=== PATIENT | female | born 1955 | race Caucasian/White ===

== ENCOUNTER → 2019-06-11 | Outpatient (CLI) | payer MEDICARE, OTHER ==
[~2019-06-11] MED LIST: ALLERGY INJ; ANTIHISTAMINE PO; CAL/MAG/ZINC PO; FAMOTIDINE20 MG PO; FISH OIL 1,0001 EAC2 PO; GLUCOSAMINE PO; LISINOPRIL10 MG PO; LOSARTAN POTASS25 MG PO; METFORMIN HCL500 MG PO; MUCINEX D ER T1 EAC1 PO; MULTIVITAMINS1 EAC8 PO; NAPROXEN PO; OMEPRAZOLE PO; PRAVASTATIN SOD10 MG PO; PROAIR HFA INH8.5 GM INH; SINGULAIR10 MG PO; SPIRIVA18 MCG INH; SYMBICORT 16010.2 GM INH; TRESIBA100 UNIT/1 SC; TURMERIC/GINGER PO; VENLAFAXINE HCL75 M2 PO; VITAMIN B PO; VITAMIN B-12500 MC2 PO; XOLAIR150 MG; XYZAL5 MG PO; [UNRECOGNIZED DRUG - CODE] PO
--- NOTE | 2019-06-11 10:48 | Diagnostic Imaging Report ---
TECHNIQUE: Magnetic resonance imaging of the LEFT KNEE was performed WITHOUT injected contrast. HISTORY: Left knee pain COMPARISON: None available. FINDINGS: LIGAMENTS AND TENDONS: ACL: Intact PCL: Intact Collateral ligaments: Intact Iliotibial band: Unremarkable Popliteal tendon: Intact Extensor mechanism: Intact JOINT: Menisci: Medial: Complex tearing with dominant horizontal component and flipped fragment into the meniscotibial recess with extrusion. Lateral: Intact without tear Articular Cartilage: Medial Compartment: Partial-thickness cartilage loss Lateral Compartment: Partial-thickness cartilage loss Patellofemoral Compartment: Partial-thickness cartilage loss Joint Fluid: Trace effusion. Calcified body posterior recess. BONE: No focal or infiltrative bone marrow replacing abnormality. No acute fracture. SOFT TISSUES: Otherwise, unremarkable. IMPRESSION: Medial meniscus complex tearing with dominant horizontal component and flipped fragment into the meniscotibial recess with extrusion. Tricompartmental partial-thickness cartilage loss. Signed by: Dr. Avinash Colon M.D. on 06/11/2019 10:45 AM
== END ==
LOC: MRI 08:37
PROVIDERS: ATTEND Specialist
DX: S83.282A Other tear of lateral meniscus, current injury, left knee, initial encounter (principal)

== ENCOUNTER 2020-11-07 09:09 | Emergency (ER) | payer MEDICARE, OTHER ==
[~2020-11-07] VITALS: Ht 157.5 cm; Wt 116.1 kg
[2020-11-07 10:38] LABS: BASOPHILS # (AUTO) 0.1 (0.0-0.1); BASOPHILS % 0.4 % (0.0-1.0); EOSINOPHILS # (AUTO) 0.1 (0.0-0.4); EOSINOPHILS % 0.4 % (0.0-6.0); HEMATOCRIT 40.4 % (34.2-44.1); HEMOGLOBIN 12.7 g/dL (12.0-16.0); LYMPHOCYTES # (AUTO) 1.8 (1.0-3.2); LYMPHOCYTES % 10.4 % (18.0-39.1); MEAN CORPUSCULAR HEMOGLOBIN 28.7 pg (28-32); MEAN CORPUSCULAR HGB CONC 31.4 g/dL (31-35); MEAN CORPUSCULAR VOLUME 91.4 fL (81-99); MONOCYTES # (AUTO) 1.5 (0.2-0.8); MONOCYTES % 8.6 % (4.4-11.3); NEUTROPHILS # (AUTO) 13.5 (2.1-6.9); NEUTROPHILS % 79.6 % (38.7-80.0); PLATELET COUNT 486 x10e3/uL (140-360); RED BLOOD COUNT 4.42 x10e6/uL (3.6-5.1); RED CELL DISTRIBUTION WIDTH 14.9 % (11.7-14.4)
[2020-11-07 11:01] LABS: ALANINE AMINOTRANSFERASE 14 IU/L (0-55); ALBUMIN 3.1 g/dL (3.5-5.0); ALBUMIN/GLOBULIN RATIO 0.9 (0.8-2.0); ALKALINE PHOSPHATASE 63 IU/L (40-150); ANION GAP 15.1 mmol/L (8-16); BLOOD UREA NITROGEN 31 mg/dL (7-26); BUN/CREATININE RATIO 51 (6-25); CALCIUM 8.7 mg/dL (8.4-10.2); CARBON DIOXIDE 27 mmol/L (22-29); CHLORIDE 108 mmol/L (98-107); CREATININE, SERUM 0.61 mg/dL (0.57-1.11); EST GLOMERULAR FILTRATION RATE > 60 ML/MIN (60-); GLUCOSE 110 mg/dL (74-118); POTASSIUM 4.1 mmol/L (3.5-5.1); SODIUM 146 mmol/L (136-145)
[2020-11-07] MEDS ORDERED: SODIUM CHLORIDE 0.9% 100 ML ONE (11:23)
[2020-11-07] MEDS ORDERED: IOPAMIDOL 370 MG/ML 200 ML INFUS..BTL INJ ONE (11:23)
[2020-11-07] MEDS ORDERED: ALBUTEROL/IPRATROPIUM 3 ML NEB NEB ONE (12:15)
== END 2020-11-07 13:17 | disposition home or self-care (01) ==
LOC: ER 09:25
DX: R19.5 Other fecal abnormalities (principal); I25.10 Atherosclerotic heart disease of native coronary artery without angina pectoris; J45.909 Unspecified asthma, uncomplicated; Z98.84 Bariatric surgery status
CPT/HCPCS: 36415; 74174; 80053; 85025; 99284; J7050; Q9967